=== PATIENT | male | born 1975 | race Caucasian/White ===

== ENCOUNTER 2023-06-28 17:30 | Inpatient (IN) | payer MEDICAID ==
[~2023-06-28] VITALS: Ht 182.9 cm; Wt 81.6 kg
[2023-06-28 17:49] VITALS: BP 148/104; PULSE 79; RESP 20; TEMP 98.7; O2SAT 97
[2023-06-28] MEDS ORDERED: ONDANSETRON 4 MG/2 ML VIAL ONE (18:11)
[2023-06-28] MEDS: MORPHINE SULFATE 4 MG/ML SYR IVP ONE ×2 (18:18→20:30)
[2023-06-28] MEDS ORDERED: ceFAZolin 1,000 MG VIAL ONE (18:24)
[2023-06-28 18:31] VITALS: O2SAT 100
[2023-06-28] MEDS: NACL 0.9% 1,000 ML IV SCH ×2 (18:34→22:57)
[2023-06-28 18:35] LABS: BASOPHILS % (AUTO) 0.4 % (0.0-2.0); EOSINOPHILS # (AUTO) 0.2 K/uL (0-0.4); EOSINOPHILS % (AUTO) 3.2 % (0.0-4.0); HEMATOCRIT 37.9 % (36-52); HEMOGLOBIN 13.5 g/dL (12.0-18.0); LYMPHOCYTES # (AUTO) 1.2 K/uL (2.0-11.5); LYMPHOCYTES % (AUTO) 19.3 % (20.5-51.1); MEAN CORPUSCULAR HEMOGLOBIN 34 pg (27-31); MEAN CORPUSCULAR HGB CONC 36 g/dL (33-37); MONOCYTES # (AUTO) 0.7 K/uL (0.8-1.0); MONOCYTES % (AUTO) 11.6 % (1.7-9.3); NEUTROPHILS # (AUTO) 4.1 K/uL (1.8-7.7); NEUTROPHILS % (AUTO) 65.5 % (42.2-75.2); PLATELET COUNT (AUTO) 254 K/uL (140-450); RED BLOOD CELL COUNT(AUTO) 4.03 MIL/uL (4.20-6.10); RED CELL DISTRIBUTION WIDTH 13.1 % (11.6-13.7); WHITE BLOOD COUNT (AUTO) 6.2 K/uL (4.8-10.8)
[2023-06-28 18:43] LABS: ANION GAP 11.4 (8-16); CALCIUM 8.4 mg/dL (8.5-10.1); CARBON DIOXIDE 29.1 mmol/L (21-32); POTASSIUM 4.5 mmol/L (3.5-5.1)
[2023-06-28] MEDS ORDERED: ACETAMINOPHEN 325 MG TAB PO PRN (18:50)
[2023-06-28] MEDS ORDERED: HYDROcodone/APAP 5/325 MG 1 TAB TAB PO PRN (18:50)
[2023-06-28] MEDS: ONDANSETRON 4 MG/2 ML VIAL IVP ONE (18:53)
[2023-06-28 20:17] VITALS: O2SAT 100
[2023-06-28] MEDS ORDERED: MORPHINE SULFATE 4 MG/ML SYR ONE (20:30)
[2023-06-28 21:15] VITALS: BP 151/76; PULSE 88; RESP 16; RESP 18; TEMP 98.4; O2SAT 99
[2023-06-28] MEDS: HYDROmorphone PFS 2 MG/ML SYR IVP PRN (22:58)
[2023-06-29] MEDS: MORPHINE SULFATE 4 MG/ML SYR IVP PRN (01:17)
[2023-06-29] MEDS: ceFAZolin 1,000 MG VIAL ONE (01:38)
[2023-06-29 07:23] LABS: BASOPHILS % (AUTO) 0.4 % (0.0-2.0); EOSINOPHILS # (AUTO) 0.2 K/uL (0-0.4); EOSINOPHILS % (AUTO) 3.7 % (0.0-4.0); HEMATOCRIT 36.5 % (36-52); HEMOGLOBIN 12.8 g/dL (12.0-18.0); LYMPHOCYTES # (AUTO) 2.1 K/uL (2.0-11.5); LYMPHOCYTES % (AUTO) 31.7 % (20.5-51.1); MEAN CORPUSCULAR HEMOGLOBIN 33 pg (27-31); MEAN CORPUSCULAR HGB CONC 35 g/dL (33-37); MONOCYTES # (AUTO) 0.9 K/uL (0.8-1.0); NEUTROPHILS # (AUTO) 3.4 K/uL (1.8-7.7); NEUTROPHILS % (AUTO) 50.2 % (42.2-75.2); PLATELET COUNT (AUTO) 255 K/uL (140-450); RED BLOOD CELL COUNT(AUTO) 3.84 MIL/uL (4.20-6.10); RED CELL DISTRIBUTION WIDTH 13.3 % (11.6-13.7); WHITE BLOOD COUNT (AUTO) 6.7 K/uL (4.8-10.8)
[2023-06-29 08:00] VITALS: BP 113/48; PULSE 101; RESP 20; TEMP 98.4; O2SAT 100
[2023-06-29 11:19] LABS: ALBUMIN 3.3 g/dL (3.4-5.0); ANION GAP 17.6 (8-16); CALCIUM 8.6 mg/dL (8.5-10.1); CARBON DIOXIDE 23.5 mmol/L (21-32); POTASSIUM 4.1 mmol/L (3.5-5.1); TOTAL BILIRUBIN 0.3 mg/dL (0.0-1.0); TOTAL PROTEIN, SERUM 6.7 g/dL (6.4-8.2)
[2023-06-29 16:00] VITALS: BP 116/83; PULSE 65; RESP 18; TEMP 99.4; O2SAT 93
[2023-06-29 20:00] VITALS: PULSE 70; RESP 20; TEMP 97.6; O2SAT 97
[2023-06-29 20:40] VITALS: BP 123/77; PULSE 70; RESP 20; TEMP 97.6; O2SAT 97
[2023-06-30 04:00] VITALS: BP 115/74; PULSE 87; RESP 18; TEMP 97.4; O2SAT 97
[2023-06-30 06:01] LABS: BASOPHILS % (AUTO) 0.3 % (0.0-2.0); EOSINOPHILS # (AUTO) 0.2 K/uL (0-0.4); EOSINOPHILS % (AUTO) 2.5 % (0.0-4.0); HEMATOCRIT 35.8 % (36-52); HEMOGLOBIN 12.5 g/dL (12.0-18.0); LYMPHOCYTES # (AUTO) 1.7 K/uL (2.0-11.5); LYMPHOCYTES % (AUTO) 25.2 % (20.5-51.1); MEAN CORPUSCULAR HEMOGLOBIN 33 pg (27-31); MEAN CORPUSCULAR HGB CONC 35 g/dL (33-37); MEAN CORPUSCULAR VOLUME 95.3 fL (80-94); MONOCYTES # (AUTO) 0.8 K/uL (0.8-1.0); MONOCYTES % (AUTO) 11.2 % (1.7-9.3); NEUTROPHILS # (AUTO) 4.2 K/uL (1.8-7.7); NEUTROPHILS % (AUTO) 60.8 % (42.2-75.2); PLATELET COUNT (AUTO) 232 K/uL (140-450); RED BLOOD CELL COUNT(AUTO) 3.75 MIL/uL (4.20-6.10); WHITE BLOOD COUNT (AUTO) 6.9 K/uL (4.8-10.8)
[2023-06-30 06:28] LABS: INR 0.93 (0.8-1.2); PARTIAL THROMBOPLASTIN TIME 26.7 secs (22-35.6); PROTHROMBIN TIME 9.8 secs (10.8-13.4)
[2023-06-30 06:34] LABS: ALBUMIN 2.8 g/dL (3.4-5.0); CARBON DIOXIDE 28.9 mmol/L (21-32); CREATININE 0.8 mg/dL (0.6-1.3); POTASSIUM 3.9 mmol/L (3.5-5.1); TOTAL BILIRUBIN 0.3 mg/dL (0.0-1.0); TOTAL PROTEIN, SERUM 6.8 g/dL (6.4-8.2)
[2023-06-30] MEDS: ceFAZolin 2,000 MG VIAL ONE (06:55)
[2023-06-30] MEDS: BUPIVACAINE-MPF 0.5% 30 ML VIAL INJ ONE (06:56)
[2023-06-30] MEDS: MIDAZOLAM 2 MG/2 ML VIAL ONE (07:20)
[2023-06-30] MEDS ORDERED: NEOSTIGMINE 1:1000 10 MG/10 ML VIAL IM ONE (07:30)
[2023-06-30] MEDS ORDERED: GLYCOPYRROLATE 0.2 MG/ML VIAL IV ONE (07:30)
[2023-06-30] MEDS ORDERED: SEVOFLURANE 250 ML BTL INH ONE (07:30)
[2023-06-30] MEDS: HYDROmorphone PFS 2 MG/ML SYR ONE (07:31)
[2023-06-30] MEDS: SUCCINYLCHOLINE CHLORIDE 200 MG/10 ML VIAL IVP ONE (07:34)
[2023-06-30] MEDS: PROPOFOL 200 MG/20 ML VIAL IV ONE (07:35)
[2023-06-30] MEDS: ROCURONIUM 50 MG/5 ML VIAL IV ONE (07:52)
[2023-06-30] MEDS: DEXAMETHASONE 4 MG/ML VIAL ONE ×2 (07:53)
[2023-06-30] MEDS: ONDANSETRON 4 MG/2 ML VIAL ONE (07:53)
[2023-06-30] MEDS: HYDROGEN PEROXIDE 3% 240 ML BTL TP ONE (07:55)
[2023-06-30] MEDS: KETOROLAC 30 MG/ML VIAL ONE (08:03)
[2023-06-30] MEDS: TRANEXAMIC ACID 1,000 MG/10 ML VIAL ONE (08:19)
[2023-06-30] MEDS: LIDOCAINE/EPI MPF 1%1:200000 30 ML VIAL INJ ONE (08:54)
[2023-06-30] MEDS: VANCOMYCIN 1,000 MG VIAL ONE (08:55)
[2023-06-30] MEDS ORDERED: MEPERIDINE 25 MG/ML SYR IVP PRN (09:15)
[2023-06-30] MEDS ORDERED: ONDANSETRON 4 MG/2 ML VIAL IVP PRN (09:15)
[2023-06-30] MEDS ORDERED: HYDROmorphone 1 MG/ML AMP IVP PRN (09:15)
[2023-06-30 11:00] VITALS: PULSE 101; RESP 17; TEMP 97.8; O2SAT 93
[2023-06-30 16:00] VITALS: BP 108/67; PULSE 73; RESP 19; TEMP 99.3; O2SAT 97
[2023-06-30 19:52] VITALS: TEMP 98.9
[2023-06-30 19:53] VITALS: BP 107/60; PULSE 78; RESP 16; TEMP 98.9; O2SAT 95
[2023-06-30 20:00] VITALS: PULSE 78; RESP 16; O2SAT 94
[2023-06-30] MEDS: ECOTRIN 81 MG TABEC PO SCH (20:19)
[2023-07-01 04:00] VITALS: BP 115/64; PULSE 79; RESP 16; TEMP 97.1; O2SAT 95
[2023-07-01 06:46] LABS: ALBUMIN 2.5 g/dL (3.4-5.0); ANION GAP 9.7 (8-16); CALCIUM 7.9 mg/dL (8.5-10.1); CARBON DIOXIDE 29.3 mmol/L (21-32); CREATININE 0.8 mg/dL (0.6-1.3); TOTAL BILIRUBIN 0.4 mg/dL (0.0-1.0); TOTAL PROTEIN, SERUM 6.5 g/dL (6.4-8.2)
[2023-07-01] MEDS ORDERED: CEPH-588 PO (08:27)
[2023-07-01] MEDS ORDERED: MIRABULK PO (08:27)
[2023-07-01] MEDS ORDERED: ACET-9525 PO (08:27)
[2023-07-01] MEDS ORDERED: ERGO-30 PO (08:27)
[2023-07-01] MEDS ORDERED: ASPI-1856 PO (08:27)
[2023-07-01 08:51] LABS: BASOPHILS % (AUTO) 0.2 % (0.0-2.0); EOSINOPHILS # (AUTO) 0.1 K/uL (0-0.4); EOSINOPHILS % (AUTO) 1.7 % (0.0-4.0); HEMATOCRIT 32.3 % (36-52); HEMOGLOBIN 11.3 g/dL (12.0-18.0); LYMPHOCYTES # (AUTO) 1.8 K/uL (2.0-11.5); LYMPHOCYTES % (AUTO) 22.2 % (20.5-51.1); MEAN CORPUSCULAR HEMOGLOBIN 34 pg (27-31); MEAN CORPUSCULAR HGB CONC 35 g/dL (33-37); MONOCYTES # (AUTO) 1.1 K/uL (0.8-1.0); MONOCYTES % (AUTO) 14.3 % (1.7-9.3); NEUTROPHILS # (AUTO) 4.9 K/uL (1.8-7.7); NEUTROPHILS % (AUTO) 61.6 % (42.2-75.2); PLATELET COUNT (AUTO) 216 K/uL (140-450); RED BLOOD CELL COUNT(AUTO) 3.36 MIL/uL (4.20-6.10); RED CELL DISTRIBUTION WIDTH 12.7 % (11.6-13.7)
[2023-07-01] MEDS: cephALEXin 500 MG CAP PO SCH (09:39)
[2023-07-01 10:45] VITALS: BP 135/70; PULSE 70; RESP 20; TEMP 98
[2023-07-01] MEDS ORDERED: TRAM50TA3 PO ×3 (18:36→18:56)
[2023-07-03] MEDS ORDERED: ERGOCALCIFEROL 50,000 IU SGL PO SCH (09:00)
== END 2023-07-01 15:45 | disposition home or self-care (01) | DRG 313 ==
LOC: MED 17:30 → MMU 18:54 → MTU 18:54
PROVIDERS: ADMIT Family Medicine; ATTEND Family Medicine
PROC: 0QHH05Z Insertion of External Fixation Device into Left Tibia, Open Approach (ICD-10-PCS; 2023-06-30)
PROC: 0QSK04Z Reposition Left Fibula with Internal Fixation Device, Open Approach (ICD-10-PCS; principal; 2023-06-30 07:30)
DX: S82.872A Displaced pilon fracture of left tibia, initial encounter for closed fracture (principal); E44.1 Mild protein-calorie malnutrition; S82.402B Unspecified fracture of shaft of left fibula, initial encounter for open fracture type I or II; S82.202B Unspecified fracture of shaft of left tibia, initial encounter for open fracture type I or II; D62 Acute posthemorrhagic anemia; W18.39XA Other fall on same level, initial encounter; Y93.89 Activity, other specified; Y92.89 Other specified places as the place of occurrence of the external cause; Y99.8 Other external cause status; Z68.24 Body mass index [BMI] 24.0-24.9, adult
CPT/HCPCS: 36415; 71045; 73590; 73700; 80048; 80053; 85025; 85610; 85730; 87040; 87081; 90471; 90715; 93005; 96365; 96375; 97116; 97163-GP; 99285; C1713; J0330; J0690; J1100; J1170; J1885; J2001; J2250; J2270; J2405; J2704; J2710; J3370; J3490; J7060; Q0092